=== PATIENT | male | born 1935 | race Caucasian/White ===

== ENCOUNTER → 2017-04-30 | Outpatient (CLI) | payer MEDICARE, OTHER ==
[~2017-04-30] MED LIST: AMLO10TA2 PO; ATOR10TA9 PO; LOSA1TAB22 PO
== END | disposition home or self-care (01) ==
LOC: RAD 17:38
PROVIDERS: ATTEND Family Medicine
DX: J90 Pleural effusion, not elsewhere classified (principal); J98.11 Atelectasis; R59.9 Enlarged lymph nodes, unspecified
CPT/HCPCS: 36415; 71275; 82565

== ENCOUNTER → 2019-08-16 | Outpatient (CLI) | payer MEDICARE, OTHER ==
[~2019-08-16] MED LIST changes: -AMLO10TA2 PO; +AMLO10TA8 PO
== END | disposition home or self-care (01) ==
LOC: CVU 13:21
PROVIDERS: ATTEND Internal Medicine Cardiovascular Disease
DX: I65.23 Occlusion and stenosis of bilateral carotid arteries (principal); I10 Essential (primary) hypertension
CPT/HCPCS: 93880